=== PATIENT | female | born 1985 | race Caucasian/White ===

== ENCOUNTER 2020-08-03 09:40 | Emergency (ER) | payer BC, SELFPAY ==
[2020-08-03 09:40] VITALS: BP 142/82; PULSE 105; RESP 16; TEMP 37.6; O2SAT 98; BMI 24.5
--- NOTE | 2020-08-03 10:04 | ED.DCSUM_ITS ---
History of Present Illness Chief Complaint: Complaint Informant: Patient Onset: Days Context: Gradual Onset Timing: Continuous Narrative: Patient is a 35-year-old female that does have a history of UTIs presenting with fever, nausea, vomiting and flank pain as well as cloudy urine. Patient states her symptoms started 3 days ago with cloudy urine. As the day progressed she started having nausea and vomiting and then the following day progressed into a flank pain. She states the left is worse on the right. No change in bowel habit. Denies dysuria or hematuria but does admit to urgency. Has some associated suprapubic pain but no other abdominal pain. He is not sexually active. Is not concerned for . Last UTI was in 2019. Past Medical History - Allergies and Home Meds Allergies/Adverse Reactions: Allergies No Known Allergies Allergy (Verified 08/03/20 09:43) Primary Care Physician: Dianne Esteban MD [STAFF PHYSICIAN] - Care Physician,No Primary [Primary Care Provider] - Past Medical History: None Surgical History: noncontributory Smoking Status: Never smoker Review of Systems General: Reports: Chills, Fever, Malaise. Denies: Sweats Eyes: Denies: Visual changes - bilaterally, Diplopia ENT: Denies: Rhinorrhea, Sore throat Cardiovascular: Denies: Chest pain, Palpitations Respiratory: Denies: Dyspnea, Cough, Dyspnea on exertion Gastrointestinal: Reports: Abdominal pain, Nausea, Vomiting. Denies: Diarrhea, Melena, Hematochezia Genitourinary: Reports: Frequency, - - urgency . Denies: Dysuria, Hematuria Musculoskeletal: Reports: - - bialteral flank pain . Denies: Back pain, Extremity Pain Skin: Denies: Rash, Wounds Neurological: Denies: Headache, Weakness, Numbness Physical Exam Vital Signs/Narrative: Vital Signs Temp Pulse Resp BP Pulse Ox 08/03/20 09:40 99.6 F H 105 H 16 142/82 H 98 Inital Vital Signs reviewed: Yes General: Well nourished, Well developed, No Acute Distress Head: Normocephalic, Atraumatic Eyes: Perrl, EOMI ENT: Moist mucous membranes, No rhinorrhea Neck: Supple, Nontender Cardiovascular: Regular rate, Regular rhythm, No murmurs Respiratory: No distress, CTA bilaterally, Chest nontender Abdomen: Soft, Nontender, Nondistended, Normal bowel sounds. Negative for: Guarding, Rebound tenderness Back: Nontender, Normal Inspection. Negative for: CVA tenderness, Spinal tenderness Extremities: Nontender, No edema Skin: Normal color, No rash Neurological: Alert, Oriented x3, Cranial nerves II-XII grossly intact, Normal Strength, Normal Sensation Psychological: Normal affect, Normal Mood Diagnostic/Tx/Re-eval Clinical Impression(s) from Imaging Studies Abdomen/Pelvis CT 08/03/20 11:11 IMPRESSION: Normal appendix. Prominent bilateral cystic adnexa. Likely right corpus luteum cyst. Prominent endometrium may all be physiologic. No renal stones or evidence for obstructive uropathy. Electronically Signed: Royer Anguiano MD at 12:21 EDT Tel , Service support , Laboratory Data 08/03/20 08/03/20 08/03/20 09:53 10:10 10:10 WBC 11.1 H RBC 3.85 L Hgb 13.4 Hct 39.3 MCV 102.1 H MCH 34.8 H MCHC 34.1 RDW Std Deviation 51.9 H RDW Coeff of Kathrin 13.9 Plt Count 169 MPV 9.3 Immature Gran % (Auto) 1.200 H Neut % (Auto) 84.5 H Lymph % (Auto) 3.7 L [place] % (Auto) 10.5 H Eos % (Auto) 0.0 Baso % (Auto) 0.1 Absolute Neuts (auto) 9.4 H Absolute Lymphs (auto) 0.41 L Nucleated RBC % 0 Differential Comment COMMENT Sodium 133 L Potassium 3.9 Chloride 95 L Carbon Dioxide 29.0 Anion Gap 9 BUN 9 Creatinine 0.85 Estim Creat Clear Calc 104.23 Est GFR (MDRD) Af Amer 98 Est GFR (MDRD) Non-Af 81 BUN/Creatinine Ratio 10.5 Glucose 102 Calcium 9.3 Total Bilirubin 0.70 AST 36 ALT 69 H Alkaline Phosphatase 43 L Total Protein 8.1 Albumin 4.3 Globulin 3.8 Albumin/Globulin Ratio 1.1 Urine Color Yellow Urine Clarity Sl. Cloudy Urine pH 6.0 Ur Specific [place] 1.010 Urine Protein 30 H Urine Glucose (UA) Normal Urine Ketones 150 H Urine Occult Blood 25 H Urine Nitrite Negative Urine Bilirubin Negative Urine Urobilinogen 1 H Ur Leukocyte Esterase 100 H Urine RBC 0 SEEN Urine WBC 25-50 SEEN Ur Squamous Epith Cells 10-25 SEEN Urine Bacteria 0 SEEN Urine Mucus 0 SEEN Urine Test Negative - Medical Decision Making Patient is evaluated for fever, flank pain and urinary symptoms. She is afebrile in the ER but does spike a fever while in the ER. She is given Toradol for this. She is given Zofran and fluids for her symptoms. She does have improvement of nausea with Zofran. She is a mild leukocytosis of 11.1 and a shift. CMP shows a very mild hyponatremia of 133. Urinalysis does show 150 ketones as well as 100 leukoesterase and 25-50 white blood cells with 0 bacteria. Urine culture sent. Given that the urinalysis is not completely consistent with pyelonephritis/UTI did add on a CT of the abdomen and pelvis with contrast for other source of her infection. No acute process is seen on CT however patient does have prominent bilateral cystic adnexa and prominent endometrium. This might be physiologic but she is in told of these findings instructed to follow-up with [employer] for further evaluation of this. In addition patient will be treated for pyelonephritis with a dose of IV Rocephin and then placed on a 10-day course of Augmentin. Urine culture sent. She is otherwise well-appearing and now tolerating p.o. She is discharged home with a prescription for Zofran. I think she is a good candidate for outpatient follow- up at this time. Patient is counseled on signs and symptoms requiring return to the emergency room. Patient verbalizes agreement and understand this plan. Patient discharged home in stable and improved condition. ED Disposition - Plan for ED Patient: Disposition: Home or Assisted Living Diagnosis: Flank pain, UTI (urinary tract infection) Instructions: ED Pyelonephritis, Female (Adult) Prescriptions: Amoxicillin/Potassium Clav [Augmentin 875-125 Tablet] 1 each PO BID #20 tablet Prescription Printed Ondansetron [Zofran Odt] 4 mg PO Q8H PRN PRN #10 tablet PRN Reason: Nausea Prescription Printed Referrals: Care Physician,No Primary [Primary Care Provider] - Dianne Esteban MD [STAFF PHYSICIAN] - Additional Instructions: You will be treated for possible early kidney infection. Your CT did not show any findings concerning for kidney stone or other cause of the pain. Incidentally, you do have some enlargement around both ovaries as well as thickening of your endometrium in your uterus. Please follow-up with your [employer] for further evaluation of this. You been referred to an [employer] TE[employer], Dr. Esteban, if you do not have 1.
[2020-08-03 10:11] LABS: Bacteria 0 SEEN /hpf (None Seen); Mucous, Urine 0 SEEN /hpf (<or=2+); Red Blood Cells-Urine 0 SEEN /hpf (0-5)
[2020-08-03 10:14] LABS: Color, Urine Yellow (Yellow); Glucose, Dipstick Normal (Normal); Leukocyte Esterase-Dipstick 100 /ul (Negative); Nitrite-Dipstick Negative (Negative); Occult Blood-Urine 25 /ul (Negative); Protein-Dipstick 30 mg/dl (Negative); Urine Bilirubin Dipstick Negative (Negative); Urine Clarity Sl. Cloudy (Clear); Urine Urobilinogen 1 mg/dl (Normal)
[2020-08-03] MEDS: Ondansetron 4 MG/2 ML Vial IV (10:16)
[2020-08-03] MEDS: 0.9% Normal Saline 1,000 ML 1000 ML IV (10:16)
[2020-08-03 10:21] LABS: Ketone-Dipstick 150 mg/dl (Negative)
[2020-08-03 10:21] LABS: Absolute Lymphocyte Count 0.41 X10^3/uL (0.83-4.51); Absolute Neutrophil Count 9.4 X10^3/uL (2.0-7.7); Basophil# 0.01 X10^3/uL; Basophil% 0.1 % (0-1); Differential Indicated SCAN CRITERIA MET; Hematocrit 39.3 % (37-47); Hemoglobin 13.4 g/dL (12.0-15.0); Lymphocyte # 0.41 X10^3/ul (4.0); Lymphocyte % 3.7 % (19-41); Mean Corp Hgb Conc 34.1 g/dL (32-36); Mean Corpuscular Hgb 34.8 pg (27.0-32.0); Mean Corpuscular Volume 102.1 fL (81-99); Mean Platelet Vol. 9.3 fl (6.2-12.0); Monocyte# 1.16 X10^3/uL; Monocyte% 10.5 % (0-10); NRBC Flagged by Analyzer 0 % (0-5); Neutrophil # 9.35 X10^3/uL (2.7-7.7); Neutrophil % 84.5 % (47-70); POSITIVE DIFFERENTIAL YES; Platelet Count 169 K/mm3 (150-450); RBC Distribution Width CV 13.9 % (11.6-14.6); RBC Distribution Width SD 51.9 fl (35.1-43.9); Red Blood Count 3.85 M/mm3 (4.2-5.4); White Blood Count 11.1 K/mm3 (4.4-11.0)
[2020-08-03 10:29] LABS: Internal QC Validated? YES +Cl - CLEAR BKGD; Pregnancy, Urine Negative Negative; Squamous Epithelial Cells - UA 10-25 SEEN /hpf (5-10); White Blood Cells 25-50 SEEN /hpf (0-5)
[2020-08-03 10:36] LABS: ALB/GLOB Ratio 1.1 RATIO (0.9-2.4); AST(SGOT) 36 U/L (15-37); Alanine Aminotransfer ALT/SGPT 69 U/L (13-56); Albumin, Serum 4.3 g/dL (3.2-5.0); Alkaline Phosphatase 43 U/L (45-117); Anion Gap 9 (5-15); BUN 9 mg/dL (7-18); BUN/Creat Ratio 10.5 RATIO (10-20); Calcium,Total 9.3 mg/dL (8.5-10.1); Chloride 95 mmol/L (98-107); Creatinine, Serum 0.85 mg/dL (0.55-1.02); EST Glomerular Filtration Rate 81 mL/min (>60); Est Glom Filt Rate - Afr Amer 98 mL/min (>60); Estimated Creatinine Clearance 104.23 ml/min; Globulin 3.8 g/dL (2.2-4.2); Glucose 102 mg/dL (74-106); Potassium 3.9 mmol/L (3.5-5.1); Protein, Total 8.1 g/dL (6.4-8.2); Sodium Level 133 mmol/L (136-145)
--- NOTE | 2020-08-03 11:11 | CT_ITS ---
INDICATION: Flank pain bilateral EXAMINATION: CT ABDOMEN AND PELVIS WITH CONTRAST - CT Abdomen And Pelvis W/ Contrast Injection TECHNIQUE: Helically acquired images were obtained of the abdomen and pelvis following IV contrast. A radiation dose optimization technique was used for this scan. IV Contrast dosage and agent: IV 100mL Isovue-300 Oral contrast: None. COMPARISON: None. FINDINGS: LOWER CHEST: Lung bases are clear. No cardiomegaly or pericardial effusion. LIVER: Homogeneous. No focal mass. GALLBLADDER AND BILIARY TREE: No calcified gallstones. No gallbladder distension or wall edema. No intra- or extrahepatic biliary ductal dilation. PANCREAS: No focal cystic or solid mass. SPLEEN: Normal size without focal cystic or solid mass. ADRENAL GLANDS: No nodules. KIDNEYS AND URETERS: Normal renal size and position. No hydronephrosis. PERITONEUM: No ascites or free air. No other fluid collection. BOWEL: No evidence of acute appendicitis. No stomach or bowel distension. No focal inflammatory change. LYMPH NODES: No enlarged mesenteric or retroperitoneal lymph nodes. VESSELS: Aorta is non-dilated. URINARY BLADDER: Unremarkable. REPRODUCTIVE ORGANS: No pelvic masses. Prominent bilateral cystic adnexa. Likely right corpus luteum cyst. Prominent endometrium may all be physiologic. ABDOMINAL WALL: No discrete abdominal or pelvic wall hernia. BONES: No lytic or blastic abnormality. CT/Abdomen/Pelvis W IV Cont ONLY IMPRESSION: Normal appendix. Prominent bilateral cystic adnexa. Likely right corpus luteum cyst. Prominent endometrium may all be physiologic. No renal stones or evidence for obstructive uropathy. Electronically Signed: Royer Anguiano MD at 12:21 EDT Tel , Service support ,
[2020-08-03 12:35] VITALS: BP 133/83; PULSE 83; RESP 16; TEMP 38.9; O2SAT 98
[2020-08-03] MEDS: Ketorolac 15 MG/ML Vial IV (12:44)
[2020-08-03] MEDS: Ceftriaxone 1 GM/50 ML BAG IV (12:55)
[2020-08-03 12:57] VITALS: BP 129/84; PULSE 5; RESP 14; TEMP 38.3; O2SAT 96
[2020-08-03 13:00] VITALS: BP 129/84; PULSE 88; RESP 14; TEMP 38.3; O2SAT 96
[2020-08-03 13:44] VITALS: BP 122/75; PULSE 84; RESP 16; TEMP 38.8; O2SAT 96
== END 2020-08-03 13:48 | disposition home or self-care (01) ==
PROVIDERS: Emergency Provider Emergency Medicine
DX: N39.0 Urinary tract infection, site not specified (principal); R10.9 Unspecified abdominal pain
CPT/HCPCS: 74177; 80053; 81001; 81025; 85025; 87086; 87088; 87186; 96361; 96365; 96375; 99284; J7030; Q9967; A4216; J2405

== ENCOUNTER 2020-12-25 19:49 | Emergency (ER) | payer BC, SELFPAY ==
[2020-12-25 19:51] VITALS: BP 151/98; PULSE 108; RESP 18; TEMP 38.7; O2SAT 98; BMI 24.4
[2020-12-25 20:03] LABS: Bacteria 0 SEEN /hpf (None Seen); Mucous, Urine 0 SEEN /hpf (<or=2+)
[2020-12-25 20:06] LABS: Color, Urine Straw (Yellow); Glucose, Dipstick Normal (Normal); Ketone-Dipstick Negative (Negative); Leukocyte Esterase-Dipstick 100 /ul (Negative); Nitrite-Dipstick Negative (Negative); Occult Blood-Urine 150 /ul (Negative); Protein-Dipstick Negative (Negative); Urine Bilirubin Dipstick Negative (Negative); Urine Clarity Clear (Clear); Urine Urobilinogen Normal (Normal)
[2020-12-25 20:12] LABS: Red Blood Cells-Urine 0-5 SEEN /hpf (0-5); Squamous Epithelial Cells - UA 0-5 SEEN /hpf (5-10); White Blood Cells 0-5 SEEN /hpf (0-5)
--- NOTE | 2020-12-25 20:22 | CT_ITS ---
STUDY: CT ABDOMEN AND PELVIS WITH CONTRAST REASON FOR EXAM: Female, 35 years old. Right flank pain and fever RADIATION DOSAGE (If Supplied By Facility): CTDIvol = ( 14.50 ) mGy, DLP = ( 1325.78 ) mGycm TECHNIQUE: Transaxial images were obtained from the dome of the diaphragm to the symphysis pubis without oral contrast. IV 100mL Isovue-370 was administered. Sagittal and coronal images were reconstructed. Individualized dose optimization techniques were used for this CT. COMPARISON: 08/03/2020 FINDINGS: The visualized lung bases are unremarkable. The visualized portions of the heart are within normal limits. Normal liver. Normal gallbladder and extrahepatic biliary system. Normal spleen. Normal pancreas. Normal bilateral adrenal glands. There are ill-defined low-attenuation foci within the cortical medullary junction of the left kidney. There is mild increased enhancement and wall thickening of the left renal pelvis. There is a ill-defined low-attenuation focus within the corticomedullary junction of the upper pole of the right kidney. Normal visualized stomach. Normal small intestine. Normal colon. The appendix is visualized and appears normal. Normal abdominal aorta. Normal inferior vena cava. Normal retroperitoneum. Normal urinary bladder. Normal abdominal wall. Normal osseous structures. CT/Abdomen/Pelvis W IV Cont ONLY IMPRESSION: Findings consistent with left-sided pyelonephritis with possible associated less pronounced right-sided pyelonephritis. Electronically Signed: Nitza Flores MD at 21:50 EDT Tel , Service support ,
[2020-12-25 20:50] LABS: Absolute Neutrophil Count 9.6 X10^3/uL (2.0-7.7); Basophil# 0.02 X10^3/uL; Basophil% 0.2 % (0-1); Eosinophil# 0.01 X10^3/uL; Eosinophils% 0.1 % (0-5); Hematocrit 39.5 % (37-47); Hemoglobin 13.1 g/dL (12.0-15.0); Lymphocyte % 10.5 % (19-41); Mean Corp Hgb Conc 33.2 g/dL (32-36); Mean Corpuscular Hgb 33.3 pg (27.0-32.0); Mean Corpuscular Volume 100.5 fL (81-99); Mean Platelet Vol. 8.9 fl (6.2-12.0); Monocyte# 1.37 X10^3/uL; NRBC Flagged by Analyzer 0 % (0-5); Neutrophil # 9.63 X10^3/uL (2.7-7.7); Neutrophil % 77.6 % (47-70); Platelet Count 191 K/mm3 (150-450); RBC Distribution Width CV 13.1 % (11.6-14.6); Red Blood Count 3.93 M/mm3 (4.2-5.4); White Blood Count 12.4 K/mm3 (4.4-11.0)
[2020-12-25 21:01] VITALS: BP 151/98; PULSE 108; RESP 18; TEMP 38.7; O2SAT 98
[2020-12-25 21:07] LABS: Internal QC Validated? YES +Cl - CLEAR BKGD; Pregnancy, Serum, hCG Quali. NEGATIVE Negative
[2020-12-25 21:15] LABS: AST(SGOT) 16 U/L (15-37); Alanine Aminotransfer ALT/SGPT 47 U/L (13-56); Albumin, Serum 4.2 g/dL (3.2-5.0); Alkaline Phosphatase 52 U/L (45-117); Anion Gap 10 (5-15); BUN 11 mg/dL (7-18); BUN/Creat Ratio 12.9 RATIO (10-20); Calcium,Total 9.5 mg/dL (8.5-10.1); Chloride 97 mmol/L (98-107); Creatinine, Serum 0.85 mg/dL (0.55-1.02); EST Glomerular Filtration Rate 81 mL/min (>60); Est Glom Filt Rate - Afr Amer 98 mL/min (>60); Estimated Creatinine Clearance 104.23 ml/min; Globulin 4.2 g/dL (2.2-4.2); Glucose 113 mg/dL (74-106); Lipase 97 U/L (73-393); Potassium 3.5 mmol/L (3.5-5.1); Protein, Total 8.4 g/dL (6.4-8.2); Sodium Level 132 mmol/L (136-145)
--- NOTE | 2020-12-25 22:12 | ED.VIS.FEGU ---
HPI HPI - Female History of Present Illness Chief Complaint: Flank Pain Informant: patient Narrative Narrative: 35-year-old female states that she was experiencing some different smell to the urine. She developed some nausea and flank discomfort. Left greater than right. Today she developed fever. She states the urine seems better. Still with some mild nausea. She took her temperature when she returned from a family function and was found to be over 101 so she came to emergency. [facility] Medical History Hypothyroidism Home Medications amoxicillin-pot clavulanate 1 each PO BID #20 tablet 08/03/20 [Rx Last Taken Unknown] ondansetron 4 mg PO Q8H PRN PRN #10 tablet 08/03/20 [Rx Last Taken Unknown] thyroid (pork) 1 tablet PO DAILY 08/03/20 [History Last Taken Unknown] ciprofloxacin HCl 500 mg PO BID #20 tablet 12/25/20 [Rx Last Taken Unknown] Allergy/AdvReac Type Severity Reaction Status Date / Time No Known Allergies Allergy Verified 12/25/20 19:53 Social History (Updated 12/25/20 @ 22:[address] Kavon Bal DO) Smoking Status: Never smoker substance use type: does not use ROS ROS ED Constitutional Constitutional ED: Reports fever(s); Denies chills or weight loss Eyes Eyes: Denies change in vision or diplopia ENT ENT ED: Denies ear pain, rhinorrhea or sore throat Cardiovascular Cardiovascular: Denies chest pain, orthopnea, palpitations or racing heartbeat Respiratory/Chest Respiratory/Chest: Denies cough, dyspnea or orthopnea Gastrointestinal Gastrointestinal: Reports nausea; Denies abdominal pain, diarrhea or vomiting Genitourinary Genitourinary ED: Reports other Details: See HPI ; Denies dysuria, hematuria or urinary frequency Musculoskeletal Musculoskeletal: Reports other Details: Bilateral flank pain ; Denies arthralgias or myalgias Integumentary Denies abscess or rash Neurologic Neurologic: Denies headache(s) or weakness Psychiatric Psychiatric: Denies anxiety, depression, suicidal ideation or suicidal thoughts Endocrine Endocrinology: Denies polydipsia, polyphagia or polyuria Allergic/Immunologic Allergic/Immunologic ED: Denies mouth swelling, tongue swelling or urticaria EXAM Physical Exam Const Vital Signs: 12/25/20 19:51 12/25/20 21:01 Temperature 101.7 F H 101.7 F H Temperature Source Temporal Temporal Pulse Rate 108 H 108 H Respiratory Rate 18 18 Blood Pressure 151/98 H 151/98 H Blood Pressure Mean 115 115 Pulse Ox 98 98 Oxygen Delivery Method Room Air Room Air Positive well nourished and well developed General Appearance ED: well developed HEENT Reports normocephalic, head/scalp atraumatic and moist mucous membranes Eyes PERRL and EOMs intact bilaterally Neck no lymphadenopathy, supple and no JVD Resp normal respiratory effort and clear to auscultation bilaterally Cardio regular rate, regular rhythm and no murmurs GI normal to inspection, nondistended, normoactive bowel sounds and non-tender Palpation: soft Back/Spine no CVA tenderness and normal ROM Extremity normal to inspection General Extremety ED: Negative for edema General Extremity: Negative for edema Neuro oriented x3 and CN's II-XII intact bilaterally Sensorium / Orientation: alert Motor Exam: strength 5/5 throughout Psych mental status grossly normal Mood & Affect: Negative for depressed or tearful Skin no rashes or lesions noted and no wounds MDM MDM MDM Narrative Medical decision making narrative: Patient's urine surprisingly came back 0-5 white cells 0-5 red cells 0 bacteria negative nitrates. Because of the fever and the negative urine we embarked on a small work-up with a white count of 12.4. Creatinine normal. Lipase and CMP normal. CT demonstrates inflammatory changes left greater than right kidney. We will treat her with Cipro for pyelonephritis. Lab Data Attestation: I reviewed the patient's lab results. Labs: Laboratory Results - last 24 hr 12/25/20 12/25/20 12/25/20 20:00 20:40 20:40 WBC 12.4 H RBC 3.93 L Hgb 13.1 Hct 39.5 MCV 100.5 H MCH 33.3 H MCHC 33.2 RDW Std Deviation 49.0 H RDW Coeff of Kathrin 13.1 Plt Count 191 MPV 8.9 Immature Gran % (Auto) 0.600 Neut % (Auto) 77.6 H Lymph % (Auto) 10.5 L [place] % (Auto) 11.0 H Eos % (Auto) 0.1 Baso % (Auto) 0.2 Absolute Neuts (auto) 9.6 H Absolute Lymphs (auto) 1.30 Nucleated RBC % 0 Sodium 132 L Potassium 3.5 Chloride 97 L Carbon Dioxide 25.0 Anion Gap 10 BUN 11 Creatinine 0.85 Estim Creat Clear Calc 104.23 Est GFR (MDRD) Af Amer 98 Est GFR (MDRD) Non-Af 81 BUN/Creatinine Ratio 12.9 Glucose 113 H Lactic Acid Calcium 9.5 Total Bilirubin 0.80 AST 16 ALT 47 Alkaline Phosphatase 52 Total Protein 8.4 H Albumin 4.2 Globulin 4.2 Albumin/Globulin Ratio 1.0 Lipase 97 Serum , Qual Urine Color Straw Urine Clarity Clear Urine pH 7.0 Ur Specific [place] 1.010 Urine Protein Negative Urine Glucose (UA) Normal Urine Ketones Negative Urine Occult Blood 150 H Urine Nitrite Negative Urine Bilirubin Negative Urine Urobilinogen Normal Ur Leukocyte Esterase 100 H Urine RBC 0-5 SEEN Urine WBC 0-5 SEEN Ur Squamous Epith Cells 0-5 SEEN Urine Bacteria 0 SEEN Urine Mucus 0 SEEN 12/25/20 12/25/20 20:40 20:40 WBC RBC Hgb Hct MCV MCH MCHC RDW Std Deviation RDW Coeff of Kathrin Plt Count MPV Immature Gran % (Auto) Neut % (Auto) Lymph % (Auto) [place] % (Auto) Eos % (Auto) Baso % (Auto) Absolute Neuts (auto) Absolute Lymphs (auto) Nucleated RBC % Sodium Potassium Chloride Carbon Dioxide Anion Gap BUN Creatinine Estim Creat Clear Calc Est GFR (MDRD) Af Amer Est GFR (MDRD) Non-Af BUN/Creatinine Ratio Glucose Lactic Acid 1.0 Calcium Total Bilirubin AST ALT Alkaline Phosphatase Total Protein Albumin Globulin Albumin/Globulin Ratio Lipase Serum , Qual NEGATIVE Urine Color Urine Clarity Urine pH Ur Specific [place] Urine Protein Urine Glucose (UA) Urine Ketones Urine Occult Blood Urine Nitrite Urine Bilirubin Urine Urobilinogen Ur Leukocyte Esterase Urine RBC Urine WBC Ur Squamous Epith Cells Urine Bacteria Urine Mucus Radiography Diagnostic Testing: Radiology Impression Abdomen/Pelvis CT 12/25/20 20:22 IMPRESSION: Findings consistent with left-sided pyelonephritis with possible associated less pronounced right-sided pyelonephritis. Electronically Signed: Nitza Flores MD at 21:50 EDT Tel , Service support , Discharge Plan Triage Chief Complaint: Flank Pain ED Provider: Kavon Bal Dx/Rx/DC Orders Clinical Impression: Pyelonephritis Instructions: ED Pyelonephritis, Female (Adult) Prescriptions: New ciprofloxacin HCl [ciprofloxacin HCl] 500 MG tablet 500 mg PO BID Qty: 20 RF: 0 No Action thyroid (pork) 30 MG tablet 1 tablet PO DAILY RF: 0 amoxicillin-pot clavulanate 1 EACH tablet 1 each PO BID Qty: 20 RF: 0 ondansetron 4 MG tablet 4 mg PO Q8H PRN PRN (Reason: Nausea) Qty: 10 RF: 0 Primary Care Provider: Care Physician,No Primary Referrals: Care Physician,No Primary [Primary Care Provider] - Disposition Disposition: Home, Self Care
[2020-12-25] MEDS: Acetaminophen 500 MG Tablet 1000 MG PO (22:24)
[2020-12-25] MEDS: Ciprofloxacin 500 MG Tablet PO (22:24)
[2020-12-25 22:25] VITALS: BP 136/72; PULSE 91; RESP 16; TEMP 36.4; O2SAT 97
== END 2020-12-25 22:26 | disposition home or self-care (01) ==
PROVIDERS: Emergency Provider Emergency Medicine
DX: N12 Tubulo-interstitial nephritis, not specified as acute or chronic (principal); E03.9 Hypothyroidism, unspecified; Z79.899 Other long term (current) drug therapy
CPT/HCPCS: 74177; 80053; 81001; 83605; 83690; 84703; 85025; 87426; 99284; Q9967; A4216

== ENCOUNTER 2023-11-07 13:10 | Inpatient (IN) | payer BC, SELFPAY ==
[2023-11-07 13:10] VITALS: BP 133/87; PULSE 58; RESP 26; TEMP 36.4; O2SAT 100; BMI 30.9
[2023-11-07 13:24] LABS: Absolute Lymphocyte Count 1.79 X10^3/uL (0.83-4.51); Absolute Neutrophil Count 14.8 X10^3/uL (2.0-7.7); Basophil# 0.08 X10^3/uL; Basophil% 0.4 % (0-1); Hematocrit 42.6 % (37-47); Hemoglobin 14.4 g/dL (12.0-15.0); Lymphocyte # 1.79 X10^3/ul (0.83-4.51); Lymphocyte % 9.8 % (19-41); Mean Corp Hgb Conc 33.8 g/dL (32-36); Mean Corpuscular Volume 103.6 fL (81-99); Mean Platelet Vol. 9.1 fl (6.2-12.0); Monocyte# 1.38 X10^3/uL; Monocyte% 7.6 % (0-10); NRBC Flagged by Analyzer 0 % (0-5); Neutrophil # 14.83 X10^3/uL (2.7-7.7); Neutrophil % 81.5 % (47-70); Platelet Count 272 K/mm3 (150-450); RBC Distribution Width CV 13.5 % (11.6-14.6); RBC Distribution Width SD 51.8 fl (35.1-43.9); Red Blood Count 4.11 M/mm3 (4.2-5.4); White Blood Count 18.2 K/mm3 (4.4-11.0)
[2023-11-07 13:40] LABS: ALB/GLOB Ratio 1.3 RATIO (0.9-2.4); AST(SGOT) 109 U/L (15-37); Alanine Aminotransfer ALT/SGPT 64 U/L (13-56); Albumin, Serum 4.3 g/dL (3.2-5.0); Alkaline Phosphatase 40 U/L (45-117); Anion Gap 18 (5-15); BUN 11 mg/dL (7-18); BUN/Creat Ratio 10.7 RATIO (10-20); Calcium,Total 10.2 mg/dL (8.5-10.1); Chloride 100 mmol/L (98-107); Creatinine, Serum 1.03 mg/dL (0.55-1.02); EST Glomerular Filtration Rate 64 mL/min (>60); Est Glom Filt Rate - Afr Amer 77 mL/min (>60); Estimated Creatinine Clearance 97.75 ml/min; Globulin 3.4 g/dL (2.2-4.2); Glucose 161 mg/dL (74-106); Potassium 3.5 mmol/L (3.5-5.1); Protein, Total 7.7 g/dL (6.4-8.2); Sodium Level 138 mmol/L (136-145)
[2023-11-07 13:46] LABS: Internal QC Validated? YES +Cl - CLEAR BKGD; Pregnancy, Serum, hCG Quali. NEGATIVE Negative
--- NOTE | 2023-11-07 13:49 | ED.VIS.GI ---
HPI HPI - GI History of Present Illness Chief Complaint: Abd Pain Informant: patient Narrative Narrative: Patient having epigastric and left upper abdominal pain started this morning along with nonbilious nonbloody emesis, has become severe. Normal but loose bowel movements lately, urinating without difficulty, feels similar to prior episode of pancreatitis. Diagnosed with alcoholic pancreatitis in the past, she drinks fairly heavily at night but not throughout the day, the last time she drank was last night. She denies any history of gallbladder problems. Pain radiates into her left low back. PFSH [facility] Medical History (Updated 11/07/23 @ 21:[address] Samuel Samuel MD) Alcohol abuse Anxiety Depression Pancreatitis Migraines Alcoholic pancreatitis Pyelonephritis Hypothyroidism Home Medications ?Medication ?Instructions ?Recorded ?Last Taken ?Type thyroid (pork) 30 mg tablet 1 tablet PO DAILY 08/03/20 11/04/23 History cholecalciferol (vitamin D3) 50 50 mcg PO DAILY 11/07/23 Unknown History mcg/drop (2,000 unit/drop) oral drops melatonin 10 mg tablet 10 mg PO QHS PRN sleep 11/07/23 Unknown History ondansetron 4 mg disintegrating 4 mg PO Q8H PRN Nausea 11/07/23 11/07/23 History tablet Allergy/AdvReac Type Severity Reaction Status Date / Time No Known Allergies Allergy Verified 11/07/23 13:11 Family History (Updated 11/07/23 @ 18:[address] Allan Esquivel MD) Other CVA (cerebral vascular accident) Prostate cancer Surgical History (Updated 11/07/23 @ 18:[address] Allan Esquivel MD) History of surgical removal of ganglion cyst History of wisdom tooth extraction Social History Smoking Status: Never smoker alcohol intake: current alcohol intake frequency: 3 or more drinks per day substance use type: does not use ROS ROS ED Constitutional Constitutional ED: Denies chills or fever(s) Eyes Eyes: Denies change in vision or diplopia ENT ENT ED: Denies rhinorrhea or sore throat Cardiovascular Cardiovascular: Denies chest pain or palpitations Respiratory/Chest Respiratory/Chest: Denies cough or dyspnea Gastrointestinal Gastrointestinal: Reports abdominal pain, nausea and vomiting; Denies diarrhea Genitourinary Genitourinary ED: Denies dysuria or hematuria Musculoskeletal Musculoskeletal: Reports back pain; Denies neck pain Integumentary Denies abscess or rash Neurologic Neurologic: Denies headache(s), paresthesias or weakness Psychiatric Psychiatric: Denies suicidal thoughts EXAM Physical Exam Const Vital Signs: 11/07/23 13:10 11/07/23 15:10 Temperature 97.6 F L Temperature Source Temporal Pulse Rate 58 L 58 L Respiratory Rate 26 H 16 Blood Pressure 133/87 H 172/98 H Blood Pressure Mean 102 122 Pulse Ox 100 97 Oxygen Delivery Method Room Air Room Air Positive well nourished and well developed Constitutional Narrative: Tachypneic due to being in pain, no distress General Appearance ED: well developed and NAD HEENT Reports moist mucous membranes normocephalic and atraumatic Eyes PERRL and EOMs intact bilaterally Neck full ROM and supple Resp normal respiratory effort and clear to auscultation bilaterally Cardio regular rate, regular rhythm and no murmurs GI non-distended GI Narrative: Severely tender epigastrium no pulsatile mass, less tender left upper and mid abdomen, lower abdomen is benign and nontender, right upper quadrant is nontender. Auscultation: normoactive bowel sounds Palpation: soft Back/Spine General Back: CVA tenderness left and other FROM Extremity normal to inspection General Extremety ED: Negative for edema, pulses abnormal or tenderness General Extremity: Negative for edema or pulses abnormal Neuro oriented x3, CN's II-XII intact bilaterally and no sensory deficits noted Sensorium / Orientation: awake and alert Motor Exam: strength 5/5 throughout Psych Mood & Affect: anxious Skin no rashes or lesions noted and no wounds MDM MDM MDM Narrative Medical decision making narrative: Maintaining patient n.p.o. and providing morphine, IV fluids, Zofran while obtaining labs, urinalysis to rule out pyelonephritis which she has had in the past, and getting a lipase. is negative ruling out ectopic , she does have a leukocytosis. Her urine is negative for infection arguing against pyelonephritis. After several doses of pain medication she is doing better, I do not think she needs an emergent ultrasound of the gallbladder since she has no tenderness there and she has a good reason for having acute pancreatitis namely alcohol. Discussed with hospitalist for admission. Lab Data Attestation: I reviewed the patient's lab results. Labs: Laboratory Results - last 24 hr 11/07/23 11/07/23 13:19 15:20 WBC 18.2 H RBC 4.11 L Hgb 14.4 Hct 42.6 MCV 103.6 H MCH 35.0 H MCHC 33.8 RDW Std Deviation 51.8 H RDW Coeff of Kathrin 13.5 Plt Count 272 MPV 9.1 Immature Gran % (Auto) 0.700 Neut % (Auto) 81.5 H Lymph % (Auto) 9.8 L [place] % (Auto) 7.6 Eos % (Auto) 0.0 Baso % (Auto) 0.4 Absolute Neuts (auto) 14.8 H Absolute Lymphs (auto) 1.79 Nucleated RBC % 0 Sodium 138 Potassium 3.5 Chloride 100 Carbon Dioxide 20.0 L Anion Gap 18 H BUN 11 Creatinine 1.03 H Estim Creat Clear Calc 97.75 Est GFR (MDRD) Af Amer 77 Est GFR (MDRD) Non-Af 64 BUN/Creatinine Ratio 10.7 Glucose 161 H Calcium 10.2 H Total Bilirubin 1.00 AST 109 H ALT 64 H Alkaline Phosphatase 40 L Total Protein 7.7 Albumin 4.3 Globulin 3.4 Albumin/Globulin Ratio 1.3 Lipase 1713 H Serum , Qual NEGATIVE Urine Color Yellow Urine Clarity Clear Urine pH 6.0 Ur Specific [place] 1.015 Urine Protein 30 H Urine Glucose (UA) Normal Urine Ketones 150 A* Urine Occult Blood 250 H Urine Nitrite Negative Urine Bilirubin Negative Urine Urobilinogen Normal Ur Leukocyte Esterase 25 H Urine RBC 10-25 SEEN Urine WBC 0-5 SEEN Ur Squamous Epith Cells 0-5 SEEN Urine Bacteria 0 SEEN Hyaline Casts 0-5 SEEN Urine Mucus RARE Management Discussion w/another healthcare provider: Hospitalist Discharge Plan Dx/Rx/DC Orders Clinical Impression: Acute alcoholic pancreatitis Disposition Disposition: [facility] Discharge Date/Time: 11/07/23 17:14
[2023-11-07] MEDS: 0.9% Normal Saline (1000mL) 1,000 ML 999 ML IV (13:59)
[2023-11-07] MEDS: Ondansetron 4 MG/2 ML Vial IV ×2 (13:59→21:43)
[2023-11-07] MEDS: morphine 10 MG/ML Syringe IV (13:59)
[2023-11-07 14:18] LABS: Lipase 1713 U/L (13-75)
[2023-11-07] MEDS: HYDROmorphone 1 MG/ML Syringe IV ×3 (14:58→21:34)
[2023-11-07 15:10] VITALS: BP 172/98; PULSE 58; RESP 16; O2SAT 97
[2023-11-07 15:28] LABS: Bacteria 0 SEEN /hpf (None Seen)
[2023-11-07 15:30] LABS: Color, Urine Yellow (Yellow); Glucose, Dipstick Normal (Normal); Leukocyte Esterase-Dipstick 25 /ul (Negative); Nitrite-Dipstick Negative (Negative); Occult Blood-Urine 250 /ul (Negative); Protein-Dipstick 30 mg/dl (Negative); Specific Gravity, Urine 1.015 (1.002-1.030); Urine Bilirubin Dipstick Negative (Negative); Urine Clarity Clear (Clear); Urine Urobilinogen Normal (Normal)
[2023-11-07 15:31] LABS: Ketone-Dipstick 150 mg/dl (Negative)
[2023-11-07 15:35] LABS: Hyaline Cast 0-5 SEEN /lpf (0-5)
[2023-11-07 15:36] LABS: Mucous, Urine RARE /hpf (<or=2+); Red Blood Cells-Urine 10-25 SEEN /hpf (0-5)
[2023-11-07 15:37] LABS: Squamous Epithelial Cells - UA 0-5 SEEN /hpf (5-10); White Blood Cells 0-5 SEEN /hpf (0-5)
--- NOTE | 2023-11-07 15:54 | HP.PCM.HOS_ITS ---
HPI - General General Date of Admission: 11/07/23 Date of Service: 11/07/23 Chief Complaint: Abdominal pain HPI Narrative SARAH JAVIER, is a 38 F with a significant history of alcoholism; and hypothyroidism who presents to the emergency department with abdominal pain. Abdominal pain is located at the umbilicus area. The pain radiates to her left abdomen and into her left flank. The pain started in a.m. on the day of presentation and progressively got worse. The pain is constant. The pain increases when she sits in an upright position and the pain improves somewhat with a lying in a recumbent position. At the emergency department patient received a 10 mg of morphine. The morphine took her pain from a level of 8 to a 7. She then received 1 mg of Dilaudid that took her pain to a 5. She describes the pain as aching and occasionally sharp. Associated her symptoms is nausea and vomiting and for which reason she had not eaten; neither did she care for food on the day of presentation. Patient admits to be a heavy alcoholic. She drinks gin. Last time she drank was the night of presentation. Patient reports that she had a pancreatitis in April 2023. At this presentation patient was found to have elevated lipase and was diagnosed with pancreatitis from the emergency department. FORMERLY [facility] Medical History Alcohol abuse Anxiety Depression Pancreatitis Migraines Alcoholic pancreatitis Pyelonephritis Hypothyroidism Home Medications ?Medication ?Instructions ?Recorded ?Last Taken ?Type thyroid (pork) 30 mg tablet 1 tablet PO DAILY 08/03/20 11/04/23 History cholecalciferol (vitamin D3) 50 50 mcg PO DAILY 11/07/23 Unknown History mcg/drop (2,000 unit/drop) oral drops melatonin 10 mg tablet 10 mg PO QHS PRN sleep 11/07/23 Unknown History ondansetron 4 mg disintegrating 4 mg PO Q8H PRN Nausea 11/07/23 11/07/23 History tablet Allergy/AdvReac Type Severity Reaction Status Date / Time No Known Allergies Allergy Verified 11/07/23 13:11 Family History Other CVA (cerebral vascular accident) Prostate cancer Surgical History History of surgical removal of ganglion cyst History of wisdom tooth extraction Social History Smoking Status: Never smoker alcohol intake: current alcohol intake frequency: 3 or more drinks per day substance use type: does not use ROS ROS Narrative Pertinent positives and pertinent negatives as noted in HPI. All other systems were reviewed and are negative Vital Signs Vital Signs Vital Signs: 11/07/23 13:10 Temperature 97.6 F L Temperature Source Temporal Pulse Rate 58 L Respiratory Rate 26 H Blood Pressure 133/87 H Blood Pressure Mean 102 Pulse Ox 100 Oxygen Delivery Method Room Air Weight Weight: 100.8 kg Body Mass Index (BMI) 30.9 Physical Exam Narrative Physical exam: General: Well-nourished, well-developed. Head: Normocephalic, atraumatic, no tenderness Eyes: Vision is grossly intact. EOMI ENT, no trauma, moist mucous membranes, no rhinorrhea Neck: Nontender, No thyromegaly. CVS: Regular rate and rhythm. S1-S2 present. No murmur, gallop or rub. Respiratory : clear to auscultation bilaterally, chest wall nontender Abdomen: Soft, nondistended, normal bowel sounds, no masses : Deferred Back: Nontender, no CVA tenderness, no midline spinal tenderness, deformities, step-offs Extremities: Nontender full range of motion, no trauma Skin: Normal color, no trauma, abrasions Neuro: Alert, oriented, cranial nerves II through XII grossly intact. Tremors. Psychiatry: Normal mood. Normal affect. Not depressed. Not anxious. Results Lab / Micro Data 11/07/23 13:19 11/07/23 13:19 Labs: Laboratory Results - last 24 hr 11/07/23 13:19: WBC 18.2 H, RBC 4.11 L, Hgb 14.4, Hct 42.6, MCV 103.6 H, MCH 35.0 H, MCHC 33.8, RDW Std Deviation 51.8 H, RDW Coeff of Kathrin 13.5, Plt Count 272, MPV 9.1, Immature Gran % (Auto) 0.700, Neut % (Auto) 81.5 H, Lymph % (Auto) 9.8 L, Josephine % (Auto) 7.6, Eos % (Auto) 0.0, Baso % (Auto) 0.4, Absolute Neuts (auto) 14.8 H, Absolute Lymphs (auto) 1.79, Nucleated RBC % 0, Sodium 138, Potassium 3.5, Chloride 100, Carbon Dioxide 20.0 L, Anion Gap 18 H, BUN 11, C reatinine 1.03 H, Estim Creat Clear Calc 97.75, Est GFR (MDRD) Af Amer 77, Est GFR (MDRD) Non-Af 64, BUN/Creatinine Ratio 10.7, Glucose 161 H, Calcium 10.2 H, Total Bilirubin 1.00, AST 109 H, ALT 64 H, Alkaline Phosphatase 40 L, Total Protein 7.7, Albumin 4.3, Globulin 3.4, Albumin/Globulin Ratio 1.3, Lipase 1713 H, Serum , Qual NEGATIVE 11/07/23 15:20: Urine Color Yellow, Urine Clarity Clear, Urine pH 6.0, Ur Specific [place] 1.015, Urine Protein 30 H, Urine Glucose (UA) Normal, Urine Ketones 150 A*, Urine Occult Blood 250 H, Urine Nitrite Negative, Urine Bilirubin Negative, Urine Urobilinogen Normal, Ur Leukocyte Esterase 25 H, Urine RBC 10-25 SEEN, Urine WBC 0-5 SEEN, Ur Squamous Epith Cells 0-5 SEEN, Urine Bacteria 0 SEEN, Hyaline Casts 0-5 SEEN, Urine Mucus RARE Assessment & Plan Assessment/Plan (1) Hypercalcemia: (2) Elevated serum creatinine: (3) Hyperglycemia: (4) Elevated liver enzymes: (5) Ketonuria: (6) Alcoholism: (7) Macrocytosis: (8) High anion gap metabolic acidosis: (9) Neutrophilia: PLAN: Plan SARAH JAVIER, is a 38 F with a significant history of alcoholism; and hypothyroidism who presents to the emergency department with abdominal pain; and found to have elevated lipase consistent with acute recurrent pancreatitis secondary to alcoholism. Generous IV fluids ordered. Pain control with as needed Dilaudid. Antiemetics with IV Zofran. Keep NPO. Ultrasound gallbladder in AM. Trend CMP. Multivitamin IV, folic acid IV, thiamine, CIWA protocol with as needed Ativan. Neutrophilia?likely reactive. Trend CBC. Hypercalcemia?IV fluids as above. Check vitamin D level. Elevated serum creatinine?does not meet the criteria for NANO. IV fluids as above. Trend electrolytes; trend creatinine. Counseled Advance care planning: Discussed with patient and family advanced directives as well as CODE STATUS. Explained various CODE STATUS: FULL CODE, DNR CCA, DNR CCA with no intubation, and DNR CC- and what each meant. Patient elected to be a full code with CPR and intubation if warranted. Order was placed. Time spent on discussion 16 minutes. Time spent in the patient's overall evaluation,decision-making process, review of diagnostic data, adjustment of management, discussion with other providers, nursing and ancillary staff involved in patient's care documentation, 70 minutes. Charges/Coding Visit Charges Inpatient E&M: 33242 Init Hosp L3 Procedures Hospitalists Procedures: 21960 Advncd Care Plan 30 Min
--- NOTE | 2023-11-07 16:29 | NURSING ---
MED SURG AGYEPONG ALCOHOLIC PANCREATITIS
[2023-11-07] MEDS: LORazepam 2 MG/ML Syringe IV ×2 (16:56→21:44)
[2023-11-07 16:57] VITALS: BP 179/99; PULSE 62; RESP 16; TEMP 36.4; O2SAT 96
[2023-11-07 17:41] VITALS: BMI 30.9
[2023-11-07 17:43] VITALS: BP 185/107; PULSE 59; RESP 18; TEMP 36.7; O2SAT 98
[2023-11-07] MEDS: Lactated Ringers 1,000 ML 250 ML IV ×2 (18:21→21:59)
[2023-11-07] MEDS: 0.9% Saline Lock 10 ML Syringe IV (18:23)
[2023-11-07] MEDS: proCHLORPERazine 10 MG/2 ML Vial 5 MG IV ×2 (18:38→23:42)
[2023-11-07] MEDS: cloNIDine HCl 0.1 MG Patch TD (18:49)
[2023-11-07] MEDS: Multivitamins 10 ML in 0.9% Normal Saline (500mL Bag) 500 ML IV (18:56)
[2023-11-07] MEDS: 0.9% Normal Saline (250mL Bag) 250 ML 15 ML IV (18:56)
[2023-11-07] MEDS: Thiamine Hydrochloride 100 MG in 0.9% Normal Saline (50mL Bag) 50 ML 200 MG IV (21:34)
[2023-11-07 21:53] VITALS: BP 150/100; PULSE 61; RESP 16; TEMP 36.4; O2SAT 98
[2023-11-07 23:40] VITALS: BP 145/87; PULSE 63; RESP 16; TEMP 36.8; O2SAT 99
[2023-11-08] MEDS: HYDROmorphone 1 MG/ML Syringe IV ×4 (00:47→14:09)
[2023-11-08] MEDS: Lactated Ringers 1,000 ML 250 ML IV ×4 (02:00→14:38)
[2023-11-08] MEDS: Ondansetron 4 MG/2 ML Vial IV (04:31)
[2023-11-08 04:37] VITALS: BP 142/100; PULSE 97; RESP 16; TEMP 36.8; O2SAT 98
--- NOTE | 2023-11-08 05:55 | US_ITS ---
STUDY: ABDOMINAL ULTRASOUND - RIGHT UPPER QUADRANT REASON FOR VISIT: Female, 38 years old Pancreatitis TECHNIQUE: Ultrasound evaluation of the right upper quadrant was performed with real-time and static cason-scale imaging. TECHNICAL QUALITY: Adequate. COMPARISON: None. FINDINGS: Liver: The liver measures 18.6 cm. There is increased echogenicity consistent with fatty infiltration. The bile ducts are within normal limits. There is hepatic color flow. The direction of portal flow is hepatopetal. There is no demonstrated mass lesion. Gallbladder: Normal distended gallbladder. The gallbladder wall measures 2 mm. There is a negative sonographic Barnes''s sign. There is pericholecystic fluid. There are no shadowing gallstones. There is layering sludge in the gallbladder. Common Bile Duct (C.B.D.): The common bile duct measures 4 mm. Pancreas: Normal size of the head, body and tail of the pancreas. There is increased echogenicity of the pancreas. There is a hypoechoic region with possible thrombosis in the splenic vein versus focal dilatation of the pancreatic duct. Right Kidney: Normal size of the right kidney. The right kidney measures 11.3 cm. Normal renal cortex. The right cortex measures 1.3 cm. There is no demonstrated renal mass or cyst. There is no right hydronephrosis. US/Gallbladder IMPRESSION: Fatty infiltration of the liver. No biliary dilatation. Sludge in the gallbladder. No shadowing gallstones. There is pericholecystic fluid. Possible partial thrombosis of the splenic vein versus dilatation of the pancreatic duct. Consider follow-up MRI and/or CT for further characterization. Electronically Signed: Samuel Esposito MD at 9:00 EDT ,
[2023-11-08 06:31] LABS: Absolute Lymphocyte Count 0.84 X10^3/uL (0.83-4.51); Absolute Neutrophil Count 12.1 X10^3/uL (2.0-7.7); Basophil# 0.04 X10^3/uL; Basophil% 0.3 % (0-1); Eosinophil# 0.01 X10^3/uL; Eosinophils% 0.1 % (0-5); Hematocrit 40.3 % (37-47); Lymphocyte # 0.84 X10^3/ul (0.83-4.51); Lymphocyte % 5.9 % (19-41); Mean Corp Hgb Conc 34.7 g/dL (32-36); Mean Corpuscular Hgb 36.2 pg (27.0-32.0); Mean Corpuscular Volume 104.1 fL (81-99); Mean Platelet Vol. 9.8 fl (6.2-12.0); Monocyte# 1.12 X10^3/uL; Monocyte% 7.9 % (0-10); NRBC Flagged by Analyzer 0 % (0-5); Neutrophil # 12.06 X10^3/uL (2.7-7.7); Neutrophil % 85.2 % (47-70); Platelet Count 197 K/mm3 (150-450); RBC Distribution Width CV 13.8 % (11.6-14.6); RBC Distribution Width SD 52.6 fl (35.1-43.9); Red Blood Count 3.87 M/mm3 (4.2-5.4); White Blood Count 14.2 K/mm3 (4.4-11.0)
[2023-11-08 07:03] LABS: ALB/GLOB Ratio 1.1 RATIO (0.9-2.4); AST(SGOT) 51 U/L (15-37); Alanine Aminotransfer ALT/SGPT 40 U/L (13-56); Albumin, Serum 3.2 g/dL (3.2-5.0); Alkaline Phosphatase 26 U/L (45-117); Anion Gap 10 (5-15); BUN 7 mg/dL (7-18); BUN/Creat Ratio 12.3 RATIO (10-20); Calcium,Total 9.1 mg/dL (8.5-10.1); Chloride 99 mmol/L (98-107); Creatinine, Serum 0.57 mg/dL (0.55-1.02); EST Glomerular Filtration Rate 126 mL/min (>60); Est Glom Filt Rate - Afr Amer 153 mL/min (>60); Estimated Creatinine Clearance 176.55 ml/min; Globulin 2.9 g/dL (2.2-4.2); Glucose 156 mg/dL (74-106); Potassium 3.5 mmol/L (3.5-5.1); Protein, Total 6.1 g/dL (6.4-8.2); Sodium Level 134 mmol/L (136-145)
--- NOTE | 2023-11-08 07:09 | PN.HOSP_ITS ---
Reason for Visit Reason for Visit: Diagnoses Disorder of white blood cells, unspecified (11/07/23) Other specified diseases of blood and blood-forming organs (11/07/23) Hypercalcemia (11/07/23) Other acidosis (11/07/23) Alcohol dependence, uncomplicated (11/07/23) Hyperglycemia, unspecified (11/07/23) Abnormal levels of other serum enzymes (11/07/23) Other specified abnormal findings of blood chemistry (11/07/23) Acetonuria (11/07/23) Subjective Subjective Feeling better. Objective Data Objective Data Vital Signs: Vital Signs Temp Pulse Resp BP Pulse Ox O2 Del Method 36.8 C 97 16 142/100 H 98 Room Air 11/08/23 04:37 11/08/23 04:37 11/08/23 04:37 11/08/23 04:37 11/08/23 04:37 11/08/23 04:37 Oxygen Delivery Method Room Air Weight: 100.7 kg Body Mass Index (BMI) 30.9 Intake & Output: Intake and Output for Last 24 Hours 11/06/23 11/07/23 11/08/23 23:59 23:59 23:59 Intake Total 2469.33 / 2469.33 Balance 2469.33 / 2469.33 Lab / Micro Data 11/08/23 05:26 11/08/23 05:26 Labs: Laboratory Results - last 24 hr 11/07/23 13:19: WBC 18.2 H, RBC 4.11 L, Hgb 14.4, Hct 42.6, MCV 103.6 H, MCH 35.0 H, MCHC 33.8, RDW Std Deviation 51.8 H, RDW Coeff of Kathrni 13.5, Plt Count 272, MPV 9.1, Immature Gran % (Auto) 0.700, Neut % (Auto) 81.5 H, Lymph % (Auto) 9.8 L, [place] % (Auto) 7.6, Eos % (Auto) 0.0, Baso % (Auto) 0.4, Absolute Neuts (auto) 14.8 H, Absolute Lymphs (auto) 1.79, Nucleated RBC % 0, Sodium 138, Potassium 3.5, Chloride 100, Carbon Dioxide 20.0 L, Anion Gap 18 H, BUN 11, C reatinine 1.03 H, Estim Creat Clear Calc 97.75, Est GFR (MDRD) Af Amer 77, Est GFR (MDRD) Non-Af 64, BUN/Creatinine Ratio 10.7, Glucose 161 H, Calcium 10.2 H, Total Bilirubin 1.00, AST 109 H, ALT 64 H, Alkaline Phosphatase 40 L, Total Protein 7.7, Albumin 4.3, Globulin 3.4, Albumin/Globulin Ratio 1.3, Lipase 1713 H, Serum , Qual NEGATIVE 11/07/23 15:20: Urine Color Yellow, Urine Clarity Clear, Urine pH 6.0, Ur Specific [place] 1.015, Urine Protein 30 H, Urine Glucose (UA) Normal, Urine Ketones 150 A*, Urine Occult Blood 250 H, Urine Nitrite Negative, Urine Bilirubin Negative, Urine Urobilinogen Normal, Ur Leukocyte Esterase 25 H, Urine RBC 10-25 SEEN, Urine WBC 0-5 SEEN, Ur Squamous Epith Cells 0-5 SEEN, Urine Bacteria 0 SEEN, Hyaline Casts 0-5 SEEN, Urine Mucus RARE 11/08/23 05:26: WBC 14.2 H, RBC 3.87 L, Hgb 14.0, Hct 40.3, MCV 104.1 H, MCH 36.2 H, MCHC 34.7, RDW Std Deviation 52.6 H, RDW Coeff of Kathrin 13.8, Plt Count 197, MPV 9.8, Immature Gran % (Auto) 0.600, Neut % (Auto) 85.2 H, Lymph % (Auto) 5.9 L, [place] % (Auto) 7.9, Eos % (Auto) 0.1, Baso % (Auto) 0.3, Absolute Neuts (auto) 12.1 H, Absolute Lymphs (auto) 0.84, Nucleated RBC % 0, Sodium 134 L, Potassium 3.5, Chloride 99, Carbon Dioxide 25.0, Anion Gap 10, BUN 7, Creatinine 0.57, Estim Creat Clear Calc 176.55, Est GFR (MDRD) Af Amer 153, Est GFR (MDRD) Non-Af 126, BUN/Creatinine Ratio 12.3, Glucose 156 H, Calcium 9.1, Total Bilirubin 0.90, AST 51 H, ALT 40, Alkaline Phosphatase 26 L, Total Protein 6.1 L , Albumin 3.2, Globulin 2.9, Albumin/Globulin Ratio 1.1 Physical Exam Const alert and no apparent distress HEENT head/scalp atraumatic and moist oral mucous membranes Resp normal respiratory effort, no retractions, no use of accessory muscles and clear to auscultation bilaterally Cardio regular rate, regular rhythm, S1 normal heart sound and S2 normal heart sound GI normal to inspection, nondistended, normoactive bowel sounds, soft to palpation, non-tender and non-distended Neuro Sensorium / Orientation: awake and alert Assessment & Plan Assessment/Plan (1) Acute alcoholic pancreatitis: PLAN: Plan Acute alcoholic pancreatitis * IVF. Pain control * US shows fatty infiltration of the liver. Sludge in the gall bladder. Pericholecystic fluid. Possible partial thrombosis of the splenic vein versus dilation of the pancreatic duct. * check MRCP Alcohol abuse * Thiamine and folate. PRN lorazepam. Hypercalcemia * resolved. May have been due to dehydration. * 25-OH d 36.7 * no additional work up VTE prophylaxis: Enoxaparin. Charges/Coding Visit Charges Inpatient E&M: 91943 Subs Hosp L2
[2023-11-08 07:48] LABS: Vitamin D,25 Hydroxy 36.7 ng/mL
[2023-11-08] MEDS: Thiamine Hydrochloride 100 MG in 0.9% Normal Saline (50mL Bag) 50 ML 200 MG IV (08:43)
[2023-11-08] MEDS: LORazepam 2 MG/ML Syringe IV ×2 (08:55→14:38)
[2023-11-08] MEDS: Folic Acid 1 MG in 0.9% Normal Saline (50mL Bag) 50 ML 200 MG IV (09:29)
--- NOTE | 2023-11-08 09:55 | CASEMGMT ---
CHERYL BENNETT Assessment: Face to Face with pt for initial transition planning/care coordination assessment. RN SABRINA introduced self and role at [facility], pt voices understanding and consents to assessment. Pt lying in bed in no distress. Pt is A&O x4 and answers all questions appropriately at this time. Care providers, pharmacy, and demographics verified/updated. Admitting Dx: Acute Alcohol Pancreatitis PCP: No PCP, provided pt with list of local providers. Specialists: Denies Preferred Pharmacy: [facility] Insurance: [place] Prescription Benefit: yes LNOK: Ruchi - mom Living Arrangements: Pt lives with 2 children in a 2 story home with 2 steps to enter. Pt states her parents are watching kids, ages are 15 and 13. Pt states I with ADLs and IADLs. Transportation: Pt drives self and denies concerns with transportation. DME: Denies HHC/SNF: Denies Hx of. Pt states Hx of alcohol use stated I don't keep track of how much, but it's enough. Pt denies wanting cessation program information. Pt denies Hx of smoking or drug use. Pt states no concerns with going home at time of dc. Pt states no further concerns/needs. CM to follow. Advised pt to ask CM if any further question/concerns/needs arise, voices understanding. Pt Goal: Home Plan: Home, will follow plan of care. Rudy LUNA CM
--- NOTE | 2023-11-08 10:15 | MRI_ITS ---
STUDY: MRI ABDOMEN WITHOUT CONTRAST REASON FOR EXAM: Female, 38 years old. Pancreatitis. TECHNIQUE: Standardized fat and water weighted pulse sequences were obtained in all 3 orthogonal planes. MRCP sequence and 3-D reconstructions performed. COMPARISON: Ultrasound FINDINGS: The visualized lung bases are unremarkable. The visualized portions of the heart are within normal limits. There is hepatomegaly with diffuse hepatic enlargement. Normal gallbladder and extrahepatic biliary system. Normal spleen. There is diffuse enlargement of the pancreas with cortney-pancreatic edema suggesting acute pancreatitis. There is 3.0 x 0.2 cm diminished signal possible enlargement of the splenic vein, superior to the pancreas, series 4 image 03/05 There is mild free fluid in the abdomen Normal bilateral adrenal glands. Normal right kidney. Normal left kidney. There is wall thickening of the stomach. Normal small intestine. Normal colon. There is non-visualization of the appendix. Normal abdominal aorta. Normal inferior vena cava. Normal retroperitoneum. Normal abdominal wall. Normal osseous structures. MRI/MRCP Abdomen without Contrast IMPRESSION: Acute pancreatitis. Diminished signal superior to the pancreas with possible enlargement of the splenic vein. Wall thickening of the stomach. Hepatosplenomegaly. Mild free fluid. Electronically Signed: Samuel Esposito MD at 12:49 EDT ,
[2023-11-08 10:30] VITALS: BP 134/84; PULSE 76; RESP 16; TEMP 36.6; O2SAT 98
[2023-11-08 10:47] VITALS: O2SAT 98
--- NOTE | 2023-11-08 12:39 | CASEMGMT ---
Social Work Pt did confirm her brother is her healthcare POA. She states he will not be coming in to see her however so will not be able to provide documents on this admission. SW asked her to bring in the documents in the future as able, pt states understanding. SW added pt's brother to the demographics in [email or web address]. CAM Willis
--- NOTE | 2023-11-08 13:48 | ADDICTION ---
This ticket writer met with PT to discuss her use hx and offer resources. PT plans to f/u with [facility] for follow-up treatment services.
[2023-11-08 14:00] VITALS: BP 132/91; PULSE 89; RESP 16; TEMP 36.6; O2SAT 98
--- NOTE | 2023-11-08 15:38 | DS.PCM_ITS ---
Providers Date of Admission: 11/07/23 Primary Care Physician: No Primary Care Phys Reason For Visit: ACUTE ALCOHOLIC PANCREATITIS Diagnosis Discharge Diagnosis (1) Acute alcoholic pancreatitis: Status: Acute Code(s): K85.20 - Alcohol induced acute pancreatitis without necrosis or infection Plan Acute alcoholic pancreatitis * IVF. Pain control * US shows fatty infiltration of the liver. Sludge in the gall bladder. Pericholecystic fluid. Possible partial thrombosis of the splenic vein versus dilation of the pancreatic duct. * MRCP shows acute pancreatitis. Possible enlargement of the splenic vein. Alcohol abuse * Multivitamin as outpatient. * Advised complete cessation particularly due to the pancreatitis. Hypercalcemia * resolved. May have been due to dehydration. * 25-OH d 36.7 * no additional work up Medications at Discharge Home Medications thyroid (pork) 30 mg tablet 1 tablet PO DAILY 08/03/20 cholecalciferol (vitamin D3) 50 mcg/drop (2,000 unit/drop) oral drops 50 mcg PO DAILY 11/07/23 melatonin 10 mg tablet 10 mg PO QHS PRN sleep 11/07/23 ondansetron 4 mg disintegrating tablet 4 mg PO Q8H PRN Nausea 11/07/23 multivitamin 1 tab PO DAILY #30 tabs 11/08/23 ondansetron 8 mg disintegrating tablet 8 mg PO Q8H PRN nausea and vomiting #15 tabs 11/08/23 oxycodone 5 mg capsule 5 mg PO Q6H PRN pain 3 days #12 caps 11/08/23 Hospital Course Operations None Procedures None Summary of Care Provided Minutes Spent on Discharge: 32 Hospital Course: Patient presents with abdominal pain. Patient was found to have acute pancreatitis. Patient an ultrasound that showed sludge in gallbladder and pericholecystic fluid and partial thrombosis of the splenic vein versus dilation of the pancreatic duct. MRCP was performed that showed possible dilation of the splenic vein but no thrombosis. Did show pancreatitis as well. Patient has overall been feeling better. She does drink large amounts of alcohol roughly around two thirds of bottle of liquor. She quit roughly 24 hours prior to arriving here but had no issues with alcohol withdrawal. Patient was given information to follow-up with 180 as outpatient. Patient is interested in maintaining sobriety. Weight / BMI Weight Weight: 100 kg Body Mass Index (BMI) 30.9 ABG / Lab / Microbiology Data 11/08/23 05:26 11/08/23 05:26 Laboratory: Laboratory Results - last 24 hr 11/08/23 05:26: WBC 14.2 H, RBC 3.87 L, Hgb 14.0, Hct 40.3, MCV 104.1 H, MCH 36.2 H, MCHC 34.7, RDW Std Deviation 52.6 H, RDW Coeff of Kathrin 13.8, Plt Count 197, MPV 9.8, Immature Gran % (Auto) 0.600, Neut % (Auto) 85.2 H, Lymph % (Auto) 5.9 L, [place] % (Auto) 7.9, Eos % (Auto) 0.1, Baso % (Auto) 0.3, Absolute Neuts (auto) 12.1 H, Absolute Lymphs (auto) 0.84, Nucleated RBC % 0, Sodium 134 L, Potassium 3.5, Chloride 99, Carbon Dioxide 25.0, Anion Gap 10, BUN 7, Creatinine 0.57, Estim Creat Clear Calc 176.55, Est GFR (MDRD) Af Amer 153, Est GFR (MDRD) Non-Af 126, BUN/Creatinine Ratio 12.3, Glucose 156 H, Calcium 9.1, Total Bilirubin 0.90, AST 51 H, ALT 40, Alkaline Phosphatase 26 L, Total Protein 6.1 L , Albumin 3.2, Globulin 2.9, Albumin/Globulin Ratio 1.1, Vitamin D 25-Hydroxy 36.7 Radiography Diagnostic Testing: Radiology Impression Gallbladder Ultrasound 11/08/23 05:55 IMPRESSION: Fatty infiltration of the liver. No biliary dilatation. Sludge in the gallbladder. No shadowing gallstones. There is pericholecystic fluid. Possible partial thrombosis of the splenic vein versus dilatation of the pancreatic duct. Consider follow-up MRI and/or CT for further characterization. Electronically Signed: Samuel Esposito MD at 9:00 EDT , MRC 11/08/23 10:15 IMPRESSION: Acute pancreatitis. Diminished signal superior to the pancreas with possible enlargement of the splenic vein. Wall thickening of the stomach. Hepatosplenomegaly. Mild free fluid. Electronically Signed: Samuel Esposito MD at 12:49 EDT , D/C Instructions Discharge Diet: - (Ogle diet advance as tolerated.) Meaningful Use Info Meaningful Use Meaningful Use Diagnoses (Choose all that apply): None applicable Ischemic Stroke Statin Dosing Therapy Reference: STATIN DOSE THERAPY REFERENCE: * Patients > 75 years receive moderate or high dose statin therapy. * Patients 75 years or YOUNGER should receive HIGH intensity statin dose unless contraindicated. You will be required to document reason for non-treatment if statin daily dose does not meet guidelines. HIGH DOSE STATIN THERAPY DAILY Atorvastatin > than or = to 40 mg Rosuvastatin > than or = to 20 mg Amlodipine + Atorvastatin > than or = to 2.5/40 mg Ezetimibe + Simvastatin 10/80 mg Simvastatin 80mg Discharge Plan Admission Admit Date/Time: 11/07/23 16:01 Primary Reason for Your Visit: Pancreatitis Attending Provider: Matthew Anderson Primary Care Provider: Care Physician,No Primary Consulting Providers: Allan Esquivel Instructions Additional Instructions / Restrictions: You had acute pancreatitis secondary to alcohol. As we discussed, do not drink alcohol any further. You begin resources to follow-up with 1 ED. They can provide counseling services and to help you through difficult times that you may encounter. You have a short course of some pain medications if needed. If you have worsening abdominal pain that could be a sign that your pancreatitis is recurred or is worsening and you may need to return to the emergency room. I would recommend starting her diet as bland diet such as toast, bananas, applesauce and rice and advance as tolerated. Discharge Orders/Prescriptions Prescriptions: New multivitamin Tablet 1 tab PO DAILY Qty: 30 0RF oxycodone 5 mg capsule 5 mg PO Q6H PRN (Reason: pain) 3 Days Qty: 12 0RF ondansetron 8 mg tablet,disintegrating 8 mg PO Q8H PRN (Reason: nausea and vomiting) Qty: 15 0RF Continued thyroid (pork) 30 MG tablet 1 tablet PO DAILY cholecalciferol (vitamin D3) 50 mcg/drop (2, 000 unit/drop) drops 50 mcg PO DAILY melatonin 10 mg tablet 10 mg PO QHS PRN (Reason: sleep) ondansetron 4 MG tablet 4 mg PO Q8H PRN (Reason: Nausea) Referrals / Follow Up: Care Physician,No Primary [Primary Care Provider] - Charges/Coding Visit Charges Inpatient E&M: 88908 Disch Hosp
== END 2023-11-08 16:22 | disposition home or self-care (01) | DRG 439 ==
LOC: ED 13:49 → MS3 16:31
PROVIDERS: Admitting Provider Hospitalist; Emergency Provider Emergency Medicine
DX: K85.20 Alcohol induced acute pancreatitis without necrosis or infection (principal); E87.20 Acidosis, unspecified; I82.890 Acute embolism and thrombosis of other specified veins; K76.0 Fatty (change of) liver, not elsewhere classified; F10.20 Alcohol dependence, uncomplicated; E03.9 Hypothyroidism, unspecified; F32.A Depression, unspecified; E86.0 Dehydration; E83.52 Hypercalcemia; F41.9 Anxiety disorder, unspecified; R82.4 Acetonuria; R73.9 Hyperglycemia, unspecified; Z79.899 Other long term (current) drug therapy
CPT/HCPCS: 36415; 74181; 76705; 80053; 81001; 82306; 83690; 84703; 85025; 99284; J7030; J7040; J7050; J7120; A4216; J2405; J3490